=== PATIENT | male | born 1950 | race Caucasian/White ===

== ENCOUNTER 2017-12-20 02:38 | Inpatient (IN) | payer OTHER ==
[~2017-12-20] VITALS: Ht 188 cm; Wt 94.7 kg
[2017-12-20] MEDS ORDERED: HEPARIN SODIUM (PORCINE) 5000 UNITS/ML 1ML VIAL ONE (02:52)
[2017-12-20] MEDS ORDERED: MORPHINE SULFATE INJECTION 1 ML ONE (02:52)
[2017-12-20] MEDS ORDERED: HEPARIN DRIP/D5W 100UNITS/ML 250 ML IV SCH (02:54)
[2017-12-20] MEDS ORDERED: ATORVASTATIN 20 MG TAB ONE (02:56)
[2017-12-20] MEDS ORDERED: METOPROLOL TARTRATE 25 MG TAB ONE (02:57)
[2017-12-20] MEDS ORDERED: ATORVASTATIN 20 MG TAB PO ONE (03:00)
[2017-12-20] MEDS ORDERED: HEPARIN SODIUM (PORCINE) 5000 UNITS/ML 1ML VIAL IV ONE (03:00)
[2017-12-20] MEDS ORDERED: MORPHINE SULFATE 8mg/ml INJ SDV IV ONE (03:00)
[2017-12-20] MEDS ORDERED: METOPROLOL TARTRATE 25 MG TAB PO ONE (03:00)
[2017-12-20 03:02] LABS: Basophils # (auto) 0 uL; Basophils % (auto) 0.6 % (0.0-2.0); Eosinophils # (auto) 0.1 uL; Eosinophils % (auto) 1.2 % (0.0-7.0); Hematocrit 44.2 % (41.0-53.0); Hemoglobin 15.1 g/dL (13.5-17.5); Lymphocytes # (auto) 2.5 uL; Lymphocytes % (auto) 32.9 % (10.0-50.0); Mean Corpuscular Hemoglobin 30.6 pg (28.0-32.0); Mean Corpuscular Hgb Conc. 34.2 g/dL (32.0-36.0); Mean Corpuscular Volume 89.3 fL (80.0-100.0); Monocytes % (auto) 13.1 % (0.0-12.0); Neutrophils # (auto) 3.9 uL; Neutrophils % (auto) 52.2 % (37.0-80.0); Nucleated Red Blood Cells % 0.1 %; Platelet Count (auto) 172 10^3/uL (140-450); Red Blood Cells 4.95 10^6/uL (4.5-5.90); Red Cell Distribution Width 13.7 % (11.8-14.3); White Blood Cell 7.6 10^3/uL (4.4-10.8)
[2017-12-20] MEDS ORDERED: HEPARIN IN NS 1000Units/500mL 1,500 ML ONE (03:21)
[2017-12-20] MEDS ORDERED: IOHEXOL 350 MG/ML 100ML IJ ONE (03:21)
[2017-12-20] MEDS ORDERED: LIDOCAINE 2%HCL (LOCAL ANESTH.) INJ 20ML MDV ONE ×3 (03:21→03:46)
[2017-12-20 03:23] LABS: INR 1.01 (0.9-1.15); Partial Thromboplastin Time 25.4 sec (23.78-33.04); Prothrombin Time 10.8 sec (9.27-12.13)
[2017-12-20 03:24] LABS: Alanine Aminotransferase 36 U/L (16-61); Albumin 3.8 g/dL (3.4-5.0); Anion Gap 10 (5-15); Aspartate Aminotransferase 24 U/L (15-37); BUN/Creatinine Ratio 21.1; Blood Urea Nitrogen 19 mg/dL (7-18); Calcium 8.5 mg/dL (8.5-10.1); Carbon Dioxide 20 mmol/L (21-32); Chloride 111 mmol/L (98-107); GFR African American 109 mL/min; GFR Non-African American 90 mL/min; Glucose 137 mg/dL (74-106); Magnesium 2.2 mg/dL (1.6-2.6); Potassium 3.8 mmol/L (3.5-5.1); Sodium 141 mmol/L (136-145)
[2017-12-20 03:30] LABS: Alkaline Phosphatase 75 U/L (45-117); Bilirubin, Total 0.3 mg/dL (0.2-1.0); Total Protein 7.6 g/dL (6.4-8.2)
[2017-12-20] MEDS ORDERED: SODIUM CHL 0.9% 50 ML ONE ×2 (03:37→03:54)
[2017-12-20] MEDS ORDERED: ANGIOMAX 250 MG VIAL IV ONE (03:37)
[2017-12-20] MEDS ORDERED: fentaNYL CITRATE 100 MCG/2 ML VL ONE (03:45)
[2017-12-20] MEDS ORDERED: MIDAZOLAM HCL 1MG/1ML-2 ML VIAL ONE (03:46)
[2017-12-20] MEDS ORDERED: EPTIFIBATIDE INJ (2MG/ML) 10ML VIAL IV ONE (03:53)
[2017-12-20] MEDS ORDERED: ADENOSINE 6 MG/2 ML INJ IV ONE (04:06)
[2017-12-20] MEDS ORDERED: TICAGRELOR 90 MG TAB ONE (04:15)
[2017-12-20] MEDS ORDERED: HYDROcodone-ACET 5/325MG TAB PO PRN (05:00)
[2017-12-20] MEDS ORDERED: MORPHINE SULFATE 8mg/ml INJ SDV IV PRN (05:00)
[2017-12-20] MEDS ORDERED: NITROGLYCERIN 0.4 MG SL TAB SL PRN (05:00)
[2017-12-20] MEDS ORDERED: ONDANSETRON HCL 4 MG/2 ML VIAL IV PRN (05:00)
[2017-12-20] MEDS ORDERED: ACETAMINOPHEN 500 MG TAB PO PRN (05:00)
[2017-12-20] MEDS ORDERED: ZOLPIDEM TARTRATE 5 MG TAB PO PRN (05:00)
[2017-12-20 05:30] VITALS: BP 112/71
[2017-12-20] MEDS: SODIUM CHLORIDE 0.9% 1,000 ML IV SCH ×2 (05:53→13:28)
[2017-12-20] MEDS ORDERED: POM PO (07:30)
[2017-12-20] MEDS: METOPROLOL TARTRATE 25 MG TAB PO SCH ×2 (10:00→22:00)
[2017-12-20] MEDS ORDERED: [UNRECOGNIZED DRUG - REMARK] PO SCH (10:00)
[2017-12-20] MEDS: ASPirin 81 mg TAB PO SCH (10:04)
[2017-12-20] MEDS: TICAGRELOR 90 MG TAB PO SCH ×2 (10:04→22:54)
[2017-12-20 12:00] VITALS: BP 111/67
[2017-12-20 22:00] VITALS: BP 109/64
[2017-12-20] MEDS: VITAMIN B1 PO SCH (22:53)
[2017-12-20] MEDS: B12 PO SCH (22:53)
[2017-12-20] MEDS: ATORVASTATIN 20 MG TAB PO SCH (22:54)
[2017-12-21 05:00] VITALS: BP 119/70
[2017-12-21 08:53] VITALS: BP 109/74
[2017-12-21] MEDS: METOPROLOL TARTRATE 25 MG TAB PO SCH ×2 (10:00→22:00)
[2017-12-21] MEDS: B12 PO SCH ×2 (10:36→22:46)
[2017-12-21] MEDS: ASPirin 81 mg TAB PO SCH (10:36)
[2017-12-21] MEDS: TICAGRELOR 90 MG TAB PO SCH ×2 (10:36→22:47)
[2017-12-21] MEDS: VITAMIN B1 PO SCH ×2 (10:36→22:46)
[2017-12-21 12:45] VITALS: BP 114/62
[2017-12-21 17:00] VITALS: BP 124/72
[2017-12-21 22:00] VITALS: BP 119/73
[2017-12-21] MEDS: ATORVASTATIN 20 MG TAB PO SCH (22:47)
[2017-12-22 05:00] VITALS: BP 108/60
[2017-12-22 09:00] VITALS: BP 113/73
[2017-12-22] MEDS: VITAMIN B1 PO SCH (10:11)
[2017-12-22] MEDS: ASPirin 81 mg TAB PO SCH (10:11)
[2017-12-22] MEDS: B12 PO SCH (10:11)
[2017-12-22] MEDS: METOPROLOL TARTRATE 25 MG TAB PO SCH (10:12)
[2017-12-22] MEDS: TICAGRELOR 90 MG TAB PO SCH (10:12)
== END 2017-12-22 09:45 | disposition home or self-care (01) | DRG 228 ==
LOC: EDBD 02:38 → ER 02:46 → CATH 03:00 → DOU IN ICU 03:01 → TELE-WESTW 03:27
PROVIDERS: ADMIT Specialist; ATTEND Family Medicine
PROC: 027034Z Dilation of Coronary Artery, One Artery with Drug-eluting Intraluminal Device, Percutaneous Approach (ICD-10-PCS; principal; 2017-12-20)
PROC: 02C00ZZ Extirpation of Matter from Coronary Artery, One Artery, Open Approach (ICD-10-PCS; 2017-12-20)
PROC: 4A023N7 Measurement of Cardiac Sampling and Pressure, Left Heart, Percutaneous Approach (ICD-10-PCS; 2017-12-20)
PROC: B2111ZZ Fluoroscopy of Multiple Coronary Arteries using Low Osmolar Contrast (ICD-10-PCS; 2017-12-20)
PROC: B41F1ZZ Fluoroscopy of Right Lower Extremity Arteries using Low Osmolar Contrast (ICD-10-PCS; 2017-12-20)
PROC: B2151ZZ Fluoroscopy of Left Heart using Low Osmolar Contrast (ICD-10-PCS; 2017-12-20)
DX: I21.19 ST elevation (STEMI) myocardial infarction involving other coronary artery of inferior wall (principal); I50.31 Acute diastolic (congestive) heart failure; I25.10 Atherosclerotic heart disease of native coronary artery without angina pectoris; R00.1 Bradycardia, unspecified; Z87.891 Personal history of nicotine dependence; Z95.5 Presence of coronary angioplasty implant and graft
CPT/HCPCS: 36415; 71045; 75710; 80053; 83735; 83880; 84484; 85025; 85610; 85730; 86850; 86900; 86901; 87081; 92928; 92973; 93005; 93458; 96361; 96374; 96375; 99152; C1874; J0153; J2250; J2270